=== PATIENT | male | born 1965 | race Caucasian/White ===

== ENCOUNTER 2024-08-14 17:09 | Emergency (ER) | payer OTHER, SELFPAY ==
[2024-08-14] VITALS (17 sets, daily range): BP systolic 139–165; BP diastolic 82–107; PULSE 70–105; TEMP 37; O2SAT 94–96; BMI 33.5
--- NOTE | 2024-08-14 17:39 | ECG_ITS ---
[facility] Test Date: 2024-08-14 Pat Name: PATRICIA OJEDA Department: Room: - Gender: Male Process Analyst: : 1965 Requested By: [id number] Order Number: [id number] Reading MD: SHANDRA ALMAZAN M.D. Measurements Intervals [place] Rate: 96 P: 47 [place]: 160 QRS: -50 QRSD: 94 T: 39 QT: 360 QTc: 414 Interpretive Statements 1100 Sinus rhythm 2630 Left anterior fascicular block 9150 abnormal ECG Compared to ECG 11/06/2018 23:47:46 Ventricular premature complex(es) no longer present ST (T wave) deviation no longer present Left-axis deviation no longer present Electronically Signed On 08-14-2024 17:51:42 EDT by SHANDRA ALMAZAN M.D.
[2024-08-14 17:58] LABS: Basophils Absolute Auto 0.1 10^3/uL (0.0-0.1); Basophils Percent Auto 1.2 % (0.2-2.0); Eosinophils Absolute Auto 0.2 10^3/uL (0.0-0.7); Eosinophils Percent Auto 2.3 % (0.9-7.0); Hematocrit 43.9 % (42.0-54.0); Hemoglobin 14.4 g/dL (14.0-18.0); Immature Granulocytes Abs Auto 0.05 10^3/uL (0.00-0.03); Immature Granulocytes Pct Auto 0.5 % (0.0-0.5); Lymphocytes Absolute Auto 2.5 10^3/uL (1.2-3.8); Mean Corpuscular HGB Conc 32.8 g/dL (29.9-35.2); Mean Corpuscular Volume 88.5 fL (80.0-94.0); Mean Platelet Volume 9.9 fL (9.5-13.5); Monocytes Percent Auto 10.3 % (1.7-12.0); Neutrophils Absolute Auto 6.2 10^3/uL (1.4-6.5); Neutrophils Percent Auto 60.7 % (43.0-75.0); Platelet Count 271 10^3/uL (150-450); Red Blood Count 4.96 10^6/uL (4.70-6.10); Red Cell Distribution Width 13.6 % (11.0-15.0); White Blood Count 10.1 10^3/uL (4.0-11.0)
[2024-08-14] MEDS: ASPIRIN 325 MG TABLET PO (18:07)
[2024-08-14] MEDS: ONDANSETRON PF 4 MG/2 ML VIAL IV (18:07)
[2024-08-14] MEDS: NITROGLYCERIN 0.4 MG BOTTLE PO (18:07)
[2024-08-14 18:12] LABS: INR 0.98; Partial Thromboplastin Time 27.6 sec (22.3-36.2); Prothrombin Time 10.4 sec (9.0-11.6)
[2024-08-14 18:15] LABS: Alanine Aminotransferase 26 U/L (16-63); Albumin Level 3.6 g/dL (3.4-5.0); Alkaline Phosphatase 90 U/L (46-116); Anion Gap 9.5; Aspartate Amino Transferase 14 U/L (15-37); BUN Creatinine Ratio 13.7; Bilirubin Total 0.4 mg/dL (0.2-1.0); Calcium 9.2 mg/dL (8.5-10.1); Carbon Dioxide 29.4 mmol/L (21.0-32.0); Chloride 104 mmol/L (98-107); Estimated GFR (African America >60 (>=60 mL/min/1.73m^2); Estimated GFR (Non-African Ame >60 (>=60 mL/min/1.73m^2); Globulin 3.7 g/dL; Glucose 110 mg/dL (74-106); Potassium 3.9 mmol/L (3.5-5.1); Sodium 139 mmol/L (136-145); Total Protein 7.3 g/dL (6.4-8.2)
--- NOTE | 2024-08-14 18:15 | ED.CHESTPAI1 ---
HPI - Chest Pain General Chief Complaint: Chest Pain Stated Complaint: Abdominal Pain Time Seen by Provider: 08/14/24 17:31 Source: patient Mode of arrival: walk-in History of Present Illness HPI narrative: 59-year-old male present here to the emergency room chief complaint of left-sided chest wall pain and headache. Patient states he checked his blood pressure at home and it was elevated. Patient states he had a history of TIA in the past due to his elevated blood pressure. He states he had moderate headache yesterday and today. He has no focal neurological deficits at this time. Denies worst headache of his life sudden onset or thunderclap sensation. He states the pain is reproducible to the left side of the chest wall. Is also had a history of a pneumothorax on the left side so he is here for evaluation. She was elevated yesterday took an extra losartan. He also took his blood pressure medications today. Related Data Home Medications ?Medication ?Instructions ?Recorded ?Confirmed empagliflozin 10 mg tablet 10 mg PO DAILY 08/14/24 08/14/24 (Jardiance) losartan 100 mg tablet 100 mg PO DAILY 08/14/24 08/14/24 omeprazole 20 mg capsule,delayed 20 mg PO DAILY 08/14/24 08/14/24 release Allergies Allergy/AdvReac Type Severity Reaction Status Date / Time levofloxacin (From Levaquin) Allergy Severe Rash Verified 08/14/24 17:39 Review of Systems ROS Status of ROS 10 or more systems reviewed and unremarkable except as noted in history and below [facility] Medical History (Updated 08/14/24 @ 19:46 by Precious Gardiner) Acetabular labrum tear ?S73.199A - Other sprain of unspecified hip, initial encounter (ICD-10) Spontaneous pneumothorax ?J93.83 - Other pneumothorax (ICD-10) Diabetes type 2, controlled ?E11.9 - Type 2 diabetes mellitus without complications (ICD-10) Hypertension ?I10 - Essential (primary) hypertension (ICD-10) Social History Little interest or pleasure in doing things: not at all Feeling down, depressed, or hopeless: not at all Exam Narrative Exam Narrative: All Systems are negative except as noted/marked.All systems reviewed and otherwise negative Nurses note and vital signs reviewed and patient is not hypoxic. General: The patient appears well and in no apparent distress. Patient is resting comfortably on cart. Skin: Warm, dry, no pallor noted. There is no rash noted. Head: Normocephalic, atraumatic Eye: Normal conjunctiva, no drainage, EOMI. PERRL Ears, Nose, Mouth, and Throat: oral mucosa is moist. Nares patent. Mouth without vesicles. Ear canals patent. Tm's without Erythema Cardiovascular: Regular Rate and Rhythm Respiratory: Patient is in no distress, no accessory muscle use, lungs are clear to auscultation, no wheezing, rales or rhonchi Back: non-tender, no CVA tenderness bilaterally to percussion. GI: Normal bowel sounds, no tenderness to palpation, no masses appreciated. No rebound, guarding, or rigidity noted. Musculoskeletal: The patient has no evidence of calf tenderness, no pitting edema, symmetrical pulses noted bilaterally Neurological: A&O x4, normal speech Psychiatric: Cooperative Constitutional Vital Signs, click to edit/add: Last Vital Signs Temp 98.6 F 08/14/24 17:24 Pulse 70 08/14/24 19:45 Resp 12 08/14/24 19:45 BP 156/96 H 08/14/24 19:45 Pulse Ox 96 08/14/24 19:45 O2 Del Method Room Air 08/14/24 17:24 Course Vital Signs Vital signs: Vital Signs Temperature 98.6 F 08/14/24 17:24 Pulse Rate 105 H 08/14/24 17:24 Respiratory Rate 20 08/14/24 17:24 Blood Pressure 152/102 H 08/14/24 17:24 Pulse Oximetry 96 08/14/24 17:24 Oxygen Delivery Method Room Air 08/14/24 17:24 Temperature 98.6 F 08/14/24 17:24 Pulse Rate 70 08/14/24 19:45 Respiratory Rate 12 08/14/24 19:45 Blood Pressure 156/96 H 08/14/24 19:45 Pulse Oximetry 96 08/14/24 19:45 Oxygen Delivery Method Room Air 08/14/24 17:24 MDM - Chest Pain MDM Narrative Medical decision making narrative: 59-year-old male present here to the emergency room chief complaint of left-sided chest wall pain and headache. Patient states he checked his blood pressure at home and it was elevated. Patient states he had a history of TIA in the past due to his elevated blood pressure. He states he had moderate headache yesterday and today. He has no focal neurological deficits at this time. Denies worst headache of his life sudden onset or thunderclap sensation. He states the pain is reproducible to the left side of the chest wall. Is also had a history of a pneumothorax on the left side so he is here for evaluation. She was elevated yesterday took an extra losartan. He also took his blood pressure medications today. Cerumen IV was established patient was given sublingual nitro which did not help alleviate his symptoms. He was then given Toradol which did help to alleviate his symptoms. Blood work including TROPONIN, cbc, and CMP were all within normal limits. Was also negative. Patient was given a liter of fluids and Toradol. He does seem to feel better. Patient was concerned he may have pressure he was able to when he initially came. Patient's blood pressure has normalized and is now 152/88. Patient was advised to follow-up with his primary care physician concerning his blood pressure medications maybe they needed adjustment. Patient agrees with plan of care. I believe patient's chest pain is musculoskeletal chest pain cardiac score of 2. Patient otherwise has no acute neurological symptoms he stable to be discharged to home Differential Diagnosis Differential diagnosis: Likely atypical chest pain and other Medical Records Data Attestation: I reviewed the patient's medical records. Lab Data Attestation: I reviewed the patient's lab results. Labs: Lab Results 08/14/24 08/14/24 Range/Units 17:45 18:55 WBC 10.1 (4.0-11.0) 10^3/uL RBC 4.96 (4.70-6.10) 10^6/uL Hgb 14.4 (14.0-18.0) g/dL Hct 43.9 (42.0-54.0) % MCV 88.5 (80.0-94.0) fL MCH 29.0 (25.9-34.0) pg MCHC 32.8 (29.9-35.2) g/dL RDW 13.6 (11.0-15.0) % Plt Count 271 (150-450) 10^3/uL MPV 9.9 (9.5-13.5) fL Neut % (Auto) 60.7 (43.0-75.0) % Lymph % (Auto) 25.0 (20.5-60.0) % [place] % (Auto) 10.3 (1.7-12.0) % Eos % (Auto) 2.3 (0.9-7.0) % Baso % (Auto) 1.2 (0.2-2.0) % Neut # (Auto) 6.2 (1.4-6.5) 10^3/uL Lymph # (Auto) 2.5 (1.2-3.8) 10^3/uL [place] # (Auto) 1.0 H (0.3-0.8) 10^3/uL Eos # (Auto) 0.2 (0.0-0.7) 10^3/uL Baso # (Auto) 0.1 (0.0-0.1) 10^3/uL Abs Immat Gran (auto) 0.05 H (0.00-0.03) 10^3/uL Imm/Tot Granulo (auto) 0.5 (0.0-0.5) % PT 10.4 (9.0-11.6) sec INR 0.98 APTT 27.6 (22.3-36.2) sec Sodium 139 (136-145) mmol/L Potassium 3.9 (3.5-5.1) mmol/L Chloride 104 (98-107) mmol/L Carbon Dioxide 29.4 (21.0-32.0) mmol/L Anion Gap 9.5 BUN 16.0 (7.0-18.0) mg/dL Creatinine 1.17 (0.70-1.30) mg/dL Est GFR ( Amer) >60 (>=60 mL/min/1.73m^2) Est GFR (Non-Af Amer) >60 (>=60 mL/min/1.73m^2) BUN/Creatinine Ratio 13.7 Glucose 110 H (74-106) mg/dL Calcium 9.2 (8.5-10.1) mg/dL Total Bilirubin 0.4 (0.2-1.0) mg/dL AST 14 L (15-37) U/L ALT 26 (16-63) U/L Alkaline Phosphatase 90 (46-116) U/L Troponin I High Sens 7.2 6.2 (4.0-76.1) pg/mL NT-Pro-B Natriuret Pep 58.0 (<=900.0) pg/mL Total Protein 7.3 (6.4-8.2) g/dL Albumin 3.6 (3.4-5.0) g/dL Globulin 3.7 g/dL Albumin/Globulin Ratio 1.0 ECG Data Attestation: ?I have reviewed the pertinent ECG results. Interpretation: 1733 EKG shows normal sinus rhythm with a rate of 96 bpm [place] interval 160 ms QRS duration [address] elevation or depression, no STEMI Heart Score History: Slightly/Non-Suspicious ECG: Normal Age: >45-<65 years Risk Factors: 1 or 2 Risk Factors Troponin: <Normal Limit Total Heart Score Recommendations & Risks:: 2 Discharge Plan Discharge Chief Complaint: Chest Pain Clinical Impression: Chest wall pain, Hypertension Patient Disposition: Home, Self-Care Time of Disposition Decision: 19:45 Condition: Good Prescriptions / Home Meds: No Action Jardiance 10 mg tablet 10 mg PO DAILY losartan 100 mg tablet 100 mg PO DAILY omeprazole 20 mg capsule,delayed release(DR/EC) 20 mg PO DAILY Print Language: Turkmen Instructions: Hypertension (ED), Chest Wall Pain (ED) Referrals: ETHEL OWEN [Primary Care Provider, Family Practice] - 1 week
[2024-08-14 18:21] LABS: Troponin I High Sensitivity 7.2 pg/mL (4.0-76.1)
[2024-08-14] MEDS: KETOROLAC TROMETHAMINE 30 MG/ML VIAL IVP (18:30)
[2024-08-14] MEDS: 0.9 % SODIUM CHLORIDE 1,000 ML 1000 ML IV (19:07)
[2024-08-14 19:21] LABS: Troponin I High Sensitivity 6.2 pg/mL (4.0-76.1)
== END 2024-08-14 19:58 | disposition home or self-care (01) ==
PROVIDERS: Physician Assistant; Emergency Provider Emergency Medicine; PCP Family Medicine
DX: R07.89 Other chest pain (principal); I10 Essential (primary) hypertension; R51.9 Headache, unspecified; Z86.73 Personal history of transient ischemic attack (TIA), and cerebral infarction without residual deficits; Z79.899 Other long term (current) drug therapy
CPT/HCPCS: 36415; 70450; 71045; 80053; 83880; 84484; 85025; 85610; 85730; 93005; 96374; 96375; 99285; J1885; J2405